=== PATIENT | female | born 1975 | race Caucasian/White ===

== ENCOUNTER 2019-10-12 07:37 | Emergency (ER) | payer OTHER ==
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
[2019-10-12] MEDS ORDERED: DEXAMETHASONE SOD PHOS INJ 10 MG/1 ML VIAL IM ONE (10:03)
[2019-10-12] MEDS ORDERED: KETOROLAC TROMETHAMINE 60 MG/2 ML SDV IM ONE (10:03)
--- NOTE | 2019-10-12 11:10 | RADIOLOGY REPORT (SQ) ---
EXAM DESCRIPTION: L SPINE WHOLE IMAGES COMPLETED DATE/TIME: 10/12/2019 10:48 am REASON FOR STUDY: lower back pain, hx of vertebral fractures COMPARISON: None. NUMBER OF VIEWS: Five views including obliques. TECHNIQUE: AP, lateral, oblique, and sacral radiographic images acquired of the lumbar spine. LIMITATIONS: None. FINDINGS: MINERALIZATION: Normal. SEGMENTATION: Normal. No transitional anatomy. ALIGNMENT: Normal. VERTEBRAE: Maintained height. No fracture or worrisome bone lesion. DISCS: Preserved height. No significant osteophytes or end plate irregularity. POSTERIOR ELEMENTS: Pedicles and facets are intact. No pars defect or posterior arch defects. HARDWARE: None in the spine. PARASPINAL SOFT TISSUES: Normal. PELVIS: Intact as visualized. No fractures or worrisome bone lesions. SI joints intact. OTHER: No other significant finding. IMPRESSION: NORMAL 5 VIEW LUMBAR SPINE. TECHNICAL DOCUMENTATION: JOB ID: [id number] 2010 [employer]- All Rights Reserved Reading location - IP/workstation name: [email or web address]
[2019-10-12 12:08] VITALS: BP 120/78
== END 2019-10-12 11:35 | disposition home or self-care (01) ==
LOC: ER 07:37
DX: M54.42 Lumbago with sciatica, left side (principal); F17.200 Nicotine dependence, unspecified, uncomplicated; Z87.81 Personal history of (healed) traumatic fracture; Z87.892 Personal history of anaphylaxis; Z88.6 Allergy status to analgesic agent; Z88.5 Allergy status to narcotic agent
CPT/HCPCS: 99283; 96372; 72110; J1885; J1100

== ENCOUNTER 2019-12-06 20:03 | Emergency (ER) | payer OTHER ==
[2019-12-06 20:12] VITALS: BP 124/73
[2019-12-06] MEDS ORDERED: ONDANSETRON HCL INJ/PF 4 MG/2 ML SDV IV ONE (21:07)
[2019-12-06] MEDS ORDERED: HYDROMORPHONE HCL INJ/PF 2 MG/ML AMPULE IV ONE ×2 (21:07→23:32)
[2019-12-06] MEDS ORDERED: METHYLPREDNISOLONE INJ 125 MG/2 ML SDV IV ONE (21:08)
--- NOTE | 2019-12-06 21:15 | ER Document Report ---
ED General - General Chief Complaint: Rectal Bleeding Stated Complaint: NAUSEA,VOMITING,DIARRHEA Primary Care Provider: ALIZA CHANG MD [ACTIVE STAFF] - Follow up as needed - [facility] Notes: 44-year-old female history of Crohn's presents with abdominal pain nausea vomiting diarrhea over the past 4 days. Patient says she has had abdominal pain diffusely worse in bilateral lower quadrants which has been similar to her prior Crohn's flares. Over the past 4 days patient has had many episodes each day of loose stool mixed with bright red blood and today began vomiting and has had 4 episodes of nonbloody nonbilious emesis. Patient feels generally weak and lightheaded. Patient says symptoms are similar to prior Crohn's flares. Patient is not on any chronic steroids and is currently not on any treatment for Crohn's. Says she was diagnosed approximately 7 months ago by district manager primary care sales but then moved and has not followed up recently. Patient denies any fever, syncope, chest pain, shortness of breath, bleeding diatheses, anticoagulation, sick contacts, myalgia, cough, COVID-19 exposures, prior abdominal surgeries - Related Data Allergies/Adverse Reactions: codeine Allergy (Verified 12/06/19 20:33) Anaphylaxis diphenhydramine [From Benadryl] Adverse Reaction (Verified 12/06/19 20:33) haloperidol [From Haldol] Adverse Reaction (Verified 12/06/19 20:33) latex Adverse Reaction (Verified 12/06/19 20:33) meperidine [From Demerol] Adverse Reaction (Verified 12/06/19 20:33) metoclopramide [From Reglan] Adverse Reaction (Verified 12/06/19 20:33) prochlorperazine [From Compazine] Adverse Reaction (Verified 12/06/19 20:33) Past Medical History - General Information source: Patient - Social History Smoking Status: Current Some Day Smoker Family History: Reviewed & Not Pertinent Patient has homicidal ideation: No Pulmonary Medical History: Reports: Hx Asthma, Hx COPD Past Surgical History: Reports: Hx Abdominal Surgery - hernia repair, Hx Hysterectomy Review of Systems - Review of Systems Notes: REVIEW OF SYSTEMS: CONSTITUTIONAL : Denies fever, chills, or sweats. EENT: Denies recent cold/sinus symptoms, denies throat pain CARDIOVASCULAR: Denies chest pain, STEVEN RESPIRATORY: Denies cough, denies shortness of breath. GASTROINTESTINAL: +abdominal pain, +nausea/vomiting. GENITOURINARY: Denies difficulty urinating, painful urination. FEMALE GENITOURINARY: Denies abnormal vaginal bleeding, vaginal discharge. MUSCULOSKELETAL: Denies neck pain, back pain. SKIN: Denies rash or skin lesions. HEMATOLOGIC : Denies easy bruising or bleeding. LYMPHATIC: Denies swollen, enlarged glands. NEUROLOGICAL: Denies headache, denies change in gait. PSYCHIATRIC: Denies anxiety or stress or depression. Physical Exam - Vital signs Vitals: Temp Pulse Resp BP Pulse Ox 98.9 F 96 18 124/73 97 12/06/19 20:11 12/06/19 20:11 12/06/19 20:11 12/06/19 20:11 12/06/19 20:11 - Notes Notes: PHYSICAL EXAMINATION: GENERAL: Well-nourished non-toxic appearing middle-aged woman appearing stated age sitting up in stretcher uncomfortable appearing secondary to abdominal pain, but in no acute distress HEAD: Atraumatic, normocephalic. EYES: Pupils equal round and appropriate constriction, sclera anicteric, conjunctiva are normal. ENT: nares patent, moist mucous membranes. NECK: Normal range of motion, supple without lymphadenopathy LUNGS: Breath sounds clear to auscultation bilaterally and equal. No wheezes rales or rhonchi. HEART: Regular rate and rhythm without murmurs ABDOMEN: Soft, tender diffusely without rebound or guarding, no masses EXTREMITIES: Normal range of motion, no pitting or edema. No cyanosis. NEUROLOGICAL: Awake, alert, conversing appropriately, moves all extremities spontaneously. PSYCH: Normal mood, normal affect. SKIN: Warm, Dry, normal turgor, no rashes or lesions noted. Course - Re-evaluation Re-evalutation: 12/06/19 21:15 Patient symptoms concerning for Crohn's flare, tender abdomen diffusely, but no acute surgical abdomen. rule out clinically significant blood loss, abscess formation, appendicitis, cholecystitis, electrolyte abnormalities. Will obtain CT abdomen pelvis, give fluid hydration, pain and nausea control, obtain labs, and reassess. Will give steroids given significant symptoms. Will send COVID test. 12/07/19 00:[address] scan and scan performed but now patient demanding to be released. I went to speak to patient who said that she just wanted to rest in her bed I do want to be in the hospital anymore. I said that patient could turn off lights and we could turn the TV off and patient could try to rest while CT read was pending and patient refused. I tried to see if there were any other needs that patient was concerned about that I could possibly address in order to assist patient in being able to stay in the ED, but there were none. Patient has capacity to refuse additional medical care. Patient is able to show understanding of risks and told me that she knows that there could be something "dangerous" and that she knows that she could , but she still did not want to stay.I warned patient about the risk of worsening symptoms, disability, pain, , delay of treatment, which was witnessed by RN. I will be unable to prescribe her steroids for her likely Crohn's flare without having the CT read back. Informed patient that she is welcome to return back to the ED at any time to complete her evaluation. - Vital Signs Vital signs: Temp Pulse Resp BP Pulse Ox 98.9 F 96 18 124/73 97 12/06/19 20:11 12/06/19 20:11 12/06/19 20:11 12/06/19 20:11 12/06/19 20:11 - Laboratory Result Diagrams: 12/06/19 20:25 12/06/19 20:25 Discharge - Discharge Clinical Impression: Abdominal pain Qualifiers: Abdominal location: generalized Qualified Code(s): R10.84 - Generalized abdominal pain Disposition: AGAINST MEDICAL ADVICE Additional Instructions: Return to the emergency department as soon as you are willing to complete the evaluation for your symptoms. If you will not return to the emergency dep artment at least try to follow-up with a district manager primary care sales, I have given you the information for one. Please reconsider returning to the ED especially if you have any worsening symptoms or unable to keep down liquids by mouth, worsening pain, continued bleeding, or any other worsening or alarming symptoms. Prescriptions: Ondansetron [Zofran Odt 4 mg Tablet] 1 tab PO Q6HP PRN #5 tab.rapdis PRN Reason: For Nausea/Vomiting Referrals: ALIZA CHANG MD [ACTIVE STAFF] - Follow up as needed
[2019-12-06 21:38] LABS: ABSOLUTE EOSINOPHILS # (AUTO) 0.1 10^3/uL (0.0-0.6); ABSOLUTE LYMPHOCYTES (AUTO) 2.3 10^3/uL (0.5-4.7); ABSOLUTE MONOCYTES (AUTO) 0.4 10^3/uL (0.1-1.4); ABSOLUTE NEUT (AUTO) 2.8 10^3/uL (1.7-8.2); BASOPHILS % (AUTO) 0.7 % (0-2); EOSINOPHILS % (AUTO) 2.5 % (0-6); HEMATOCRIT 42.3 % (36.0-47.0); HEMOGLOBIN 14.2 g/dL (12.0-15.5); LYMPHOCYTES % (AUTO) 40.7 % (13-45); MEAN CORPUSCULAR HEMOGLOBIN 28.7 pg (27.0-33.4); MEAN CORPUSCULAR HGB CONC 33.7 g/dL (32.0-36.0); MEAN CORPUSCULAR VOLUME 85 fl (80-97); MONOCYTES % (AUTO) 6.9 % (3-13); PLATELET COUNT 169 10^3/uL (150-450); RED BLOOD COUNT 4.97 10^6/uL (3.72-5.28); RED CELL DISTRIBUTION WIDTH 13.1 % (11.5-14.0); SEGMENTED NEUTROPHILS % (AUTO) 49.2 % (42-78); TOTAL CELLS COUNTED % (AUTO) 100 %; WHITE BLOOD COUNT 5.7 10^3/uL (4.0-10.5)
[2019-12-06 21:42] LABS: INTERNATIONAL RATION (INR) 0.93; PROTHROMBIN TIME 12.7 SEC (11.4-15.4)
[2019-12-06 21:43] LABS: PARTIAL THROMBOPLASTIN TIME 30.3 SEC (23.5-35.8)
[2019-12-06 21:52] LABS: ALBUMIN 4.2 g/dL (3.5-5.0); ALKALINE PHOSPHATASE 93 U/L (38-126); ASPARTATE AMINO TRANSFERASE 21 U/L (14-36); BILIRUBIN,TOTAL 0.2 mg/dL (0.2-1.3); BLOOD UREA NITROGEN 16 mg/dL (7-20); CALCIUM 9.1 mg/dL (8.4-10.2); CHLORIDE 107 mmol/L (98-107); GLUCOSE 93 mg/dL (75-110); POTASSIUM 3.8 mmol/L (3.6-5.0); TOTAL PROTEIN 6.7 g/dL (6.3-8.2)
[2019-12-06 21:57] LABS: ANION GAP 5 (5-19); CARBON DIOXIDE 26 mmol/L (22-30)
[2019-12-07] MEDS ORDERED: ONDANSETRON HCL INJ/PF 4 MG/2 ML SDV IV ONE (00:04)
--- NOTE | 2019-12-07 00:26 | RADIOLOGY REPORT (SQ) ---
CLINICAL INDICATION: crohn's diffuse abd pain hematochezia. HCG NEG. . TECHNIQUE: Contrast enhanced spiral axial CT imaging was obtained of the abdomen and pelvis with multiplanar reconstructions. This exam was performed according to our departmental dose-optimization program, which includes automated exposure control, adjustment of the mA and/or kV according to patient size and/or use of iterative reconstruction techniques. Additional delayed phase imaging COMPARISON: None. CORRELATION: None. FINDINGS: Abdomen: The lung bases are grossly clear. The heart is of normal size. No evidence of pleural or pericardial fluid. The liver is homogeneous but prominent at 17.7 cm craniocaudad. The gallbladder is nondistended without inflammatory change. The pancreas is unremarkable. The spleen is unremarkable. The adrenals are unremarkable. The kidneys appear grossly normal without evidence of urolithiasis or hydronephrosis. There is no evidence of free air. No free fluid. No bulky adenopathy. Abdominal aorta is nonaneurysmal. Pelvis: The bowel is nonobstructed. No focal inflammatory change. Pelvic contents demonstrate postsurgical change. The appendix is normal. Visualized bones demonstrate old posttraumatic change left transverse process of L3. IMPRESSION: No acute intra-abdominal process is identified. No focal inflammatory changes are seen.
== END 2019-12-07 00:15 | disposition left against medical advice (07) ==
LOC: ER 20:03
DX: R10.84 Generalized abdominal pain (principal); R10.817 Generalized abdominal tenderness; R11.2 Nausea with vomiting, unspecified; R19.7 Diarrhea, unspecified; K92.1 Melena; R53.1 Weakness; R42 Dizziness and giddiness; F17.200 Nicotine dependence, unspecified, uncomplicated; J44.9 Chronic obstructive pulmonary disease, unspecified; Z87.892 Personal history of anaphylaxis; Z88.6 Allergy status to analgesic agent; Z88.5 Allergy status to narcotic agent; Z53.29 Procedure and treatment not carried out because of patient's decision for other reasons
CPT/HCPCS: 96376; 99285; 96374; 96375; 86900; 86901; 36415; 86850; 83690; 84703; 85025; 85610; 85730; 80053; 74177; J2930; J1170; J2405 ×2